=== PATIENT | female | born 1995 | race Two or more races ===

== ENCOUNTER 2019-05-28 16:48 | Emergency (ER) | payer MEDICAID, OTHER ==
[~2019-05-28] VITALS: Ht 160 cm; Wt 108.0 kg
[~2019-05-28 16:48] MED LIST: PHEN-786 PO
[2019-05-28] MEDS ORDERED: HYDROcodone/acetaminophen 10/325mg tab PO ONE (17:20)
[2019-05-28] MEDS ORDERED: ondansetron 4mg rapidly disintigrating tab PO ONE (17:20)
[2019-05-28 18:11] VITALS: BP 125/76
== END 2019-05-28 18:14 | disposition home or self-care (01) ==
LOC: ER 16:49
DX: M79.622 Pain in left upper arm (principal); R06.02 Shortness of breath; Z98.890 Other specified postprocedural states
CPT/HCPCS: 71046; 93005; 99283; J2405

== ENCOUNTER 2024-03-11 10:40 | Emergency (ER) | payer MEDICAID, OTHER ==
[~2024-03-11] VITALS: Ht 160 cm; Wt 120.0 kg
[2024-03-11 10:51] VITALS: BP 112/50; PULSE 62; RESP 16; TEMP 98.8; O2SAT 98
[2024-03-11] MEDS ORDERED: dexamethasone sod phosphate 10mg/ml inj IM STA (10:58)
[2024-03-11] MEDS ORDERED: ketorolac trometh inj. 60 MG/2 ML VIAL IM ONE (11:00)
[2024-03-11] MEDS ORDERED: famotidine 20mg tablet PO ONE (11:00)
[2024-03-11] MEDS ORDERED: FAMO-129 PO (11:06)
[2024-03-11] MEDS ORDERED: PRED20TA PO (11:06)
[2024-03-11] MEDS ORDERED: diphenhydrAMINE 50 mg/ml inj IM ONE (11:10)
[2024-03-11] MEDS ORDERED: ketorolac tromethamine 15mg/ml inj. IM ONE (11:10)
== END 2024-03-11 14:12 | disposition home or self-care (01) ==
LOC: ER 10:40
DX: T78.40XA Allergy, unspecified, initial encounter (principal); X58.XXXA Exposure to other specified factors, initial encounter; M53.3 Sacrococcygeal disorders, not elsewhere classified
CPT/HCPCS: 99283